=== PATIENT | female | born 2005 | race Caucasian/White ===

== ENCOUNTER 2025-02-15 11:09 | Outpatient (CLI) | payer OTHER, SELFPAY ==
--- OUTSIDE RECORDS SUMMARY | 2025-02-15 12:05 | XMS_ITS | Clinical Summary ---
Author Organization [facility] Address [address] [place] [address] Care Team Providers Care Icu Specialist Name Role Phone Scooter Vizcaino MD Unavailable [phone] Scooter Vizcaino MD Primary Care Provider [phone] Allergies No known active allergies Medications sertraline (ZOLOFT) 50 mg tablet 4 Active drospirenone-eth inyl estradioL (CYNTHIA REDMOND) 3-0.02 mg per tabletIndication s:Menorrhagia with regular cycle,Dysmenorrh ea,Encounter for control pills maintenance Take 1 tablet by mouth daily Stack pills, not taking inactive week 84 tablet 4 4 Active Additional Information Patient not taking.Reported on 01/21/2025 dextroamphetamin e-amphetamine (ADDERALL) 10 mg tablet Take 1 tablet (10 mg total) by mouth 4 Active cetirizine (ZyrTEC) 10 mg tablet Take 1 tablet (10 mg total) by mouth as needed 3 Active SUMAtriptan (IMITREX) 50 mg tablet 1 tablet at the onset of migraine; may repeat after 2 hours once in a 24 hour period if needed 5 Active Qulipta 60 mg tablet Take 60 mg by mouth daily 5 Active Active Problems Problem Noted Date Diagnosed Date 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 [place] [address] Jessika Gilmore MD Encounter for annual routine gynecological examination (Primary Dx); Encounter for screening for infections with predominantly sexual mode of transmission; Dysmenorrhea; Encounter for general counseling and advice on contraceptive management; Abnormal uterine bleeding (AUB); Family history of breast cancer 11/30/2024 Telephone [facility] [address] [place] [address] Elyssa Clay from Last 3 Months Surgical History Surgery Date Site/Laterality Comments NO PAST SURGERIES Family History Medical History Relation Name Comments No Known Problems Father No Known Problems Mother Scoliosis Other Relation Name Status Comments Father Alive Mother Alive Other Social History Tobacco Use Types Packs/Day Years Used Date Smoking Tobacco: Never Smokeless Tobacco: Never Tobacco Cessation:Counseling Given: Not Answered Alcohol Use Standard Drinks/Week Comments Defer 0 (1 standard drink = 0.6 oz pur e alcohol) AUDIT-C Answer Date Recorded Frequency of Alcohol Consumption Not on file 08/13/2023 Q2: How many drinks containi ng alcohol do you have on a typical day when you are drinking? Patient does not drink Frequency of Binge Drinking Not on file 01/2024 Personal Safety Answer Date Recorded Have you ever been in or are you currently in a harmful physical or emotional relationship or is someone making you feel afraid or unsafe? 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 Temperature 36.6 C (97.8 F) 07/29/2024 11:56 AM TEST AND BALANCE ENGINEER Respiratory Rate 18 07/29/2024 11:5 5 AM TEST AND BALANCE ENGINEER Oxygen Saturation 100% 07/29/2024 11: 55 AM TEST AND BALANCE ENGINEER Inhaled Oxygen Concentration - - Weight 55.7 kg (122 lb 12.8 oz) 025 10:49 AM CDT Height 160 cm (5' 3) 01/21/2025 10:49 AM CDT Body Mass Index 21.75 01/21/2025 10:49 AM CDT Plan of Treatment Health Maintenance Due Date Last Done Comments Chlamydia and Gonorrhea (GC/CT) Screening 2004 Depression Screening 2004 Hepatitis C Screening 2004 Meningococcal B Vaccine (1 of 2 - Standard) 2020 Covid-19 Vaccine ( season) 2024 02/12/2021, 01/22/2021 DTaP/Tdap/Td Vaccine (7 - Td or Tdap) 02/13/2025 02/13/2015, 01/17/2010, 03/27/2006, Additional history exists Influenza Vaccine (#1) 2025 , 04/14/2020, 03/19/2019, Additional history exists Regular Well Visit/Exam 18-64 01/21/2026 01/21/2025, 08/13/2023 Pneumococcal vaccine <65 Aged Out 005, 03/08/2005, 01/02/2005 No longer eligible based on patient's age to complete this topic Hepatitis B Screening Completed 01/02/2006 , 04/29/2005, 03/08/2005 Varicella Vaccines Completed 12/27/2008, 03/27/2006 HPV Vaccines Completed 03/19/2019, 10/2016, 02/28/2016, Additional history exists Meningococcal Vaccine Completed 12/27/2021, 016 Procedures Procedure Name Priority Date/Time Associated Diagnosis Comments SURESWAB(R), CT/NG, T VAGINALIS Routine 01/21/2025 11:33 AM CDT Encounter for screening for infections with predominantly sexual mode of transmission from Last 3 Months Results * SURESWAB(R), CT/NG, T VAGINALIS (01/21/2025 11:33 AM CDT) C. trachomatis RNA NOT DETECTED NOT DETECTED [facility] [place] N. gonorrhoeae RNA NOT DETECTED NOT DETECTED [facility] [place] Comment [facility] [place] Comment: The analytical performance characteristics of this assay, when used to test SurePath(TM) specimens have been determined by [facility]. The modifications have not been cleared or approved by the FDA. This assay has been validated pursuant to the CLIA regulations and is used for clinical purposes. For additional information, please refer to https://[employer]/faq/NJP382 (This link is being provided for information/ educational purposes only.) Trichomonas vaginalis NOT DETECTED NOT DETECTED [facility] [place] Comment: For additional information, please refer to [email or web address]/[email or web address] (This link is being provided for informational/ educational purposes only.) Urine 01/21/2025 11:3 3 AM CDT 01/22/2025 4:40 AM CDT Jessika Gilmore MD LAB BLOOD ORDERABLES nal Result [facility] [address] [place] [address] from Last 3 [place] [address] [facility] [id number] [facility] [id number] [facility] OPEN ACCESS [facility] Care Teams Icu Specialist Relationship Specialty Start Date End Date Scooter Vizcaino MD [address] [place] [address] PCP - General Internal Medicine 07/29/24 Scooter Vizcaino MD [address] [place] [address] Referring Physician Internal Medicine 06/22/24
--- OUTSIDE RECORDS SUMMARY | 2025-02-15 12:05 | XMS_ITS | Clinical Summary ---
Author Organization [facility] [employer] Address [address] [place] [address] Care Team Providers Care Tie Puller Name Role Phone Scooter Vizcaino MD Primary Care Provider [phone] Source Comments [facility] [employer],non-owned Affiliates and Associated Physician Practices is amultiple site organization consisting of ambulatory clinics and hospital sitesin [place], [place], [place] and [place]. This disclosure is being madepursuant to the Care Everywhere program and may not contain all information available regarding this patient. Last updated 18.[facility] [employer] Allergies No known active allergies Medications * Be aware that medications may not be up to date on this document. Alwaysverify current medications with the patient. amphetamine-dextr oamphetamine (Adderall) 10 MG tablet Take 1 (one) tablet by mouth 07/01/20 24 Active sertraline (Zoloft) 100 MG tablet Take 1 (one) tablet by mouth once daily 09/15/19 25 Active cetirizine (ZyrTEC) 10 MG tablet Take 1 (one) tablet by mouth as needed 06/25/20 23 Active Atogepant (Qulipta) 60 MG TABSIndications:O cular migraine,Migraine without aura and without status migrainosus, not intractable Take 1 (one) tablet by mouth once daily 30 tablet 5 10/22/19 25 Active SUMAtriptan (Imitrex) 50 MG tabletIndications :Ocular migraine,Migraine without aura and without status migrainosus, not intractable 1 tablet at the onset of migraine; may repeat after 2 hours once in a 24 hour period if needed 9 tablet 4 10/22/19 25 Active hydrocortisone (Hytone) 2.5 % cream Apply to affected area every 24 hours 12/01/19 Active meclizine (Antivert) 25 MG tablet Take 1 (one) tablet by mouth as needed 05/29/20 24 Active oxyCODONE, immediate release, (Roxicodone) 5 MG tabletIndications :Obstructive hydrocephalus (HCC) Take 1 (one) tablet by mouth every 4 hours as needed 20 tablet 01/01/20 025 Discontin ued(List Clean-Up) acetaminophen (Tylenol) 325 MG tablet Take 2 (two) tablets by mouth every 6 hours as needed Maximum allowable Acetaminophen amount = 4 Grams (4000 mg) / 24 hours. 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 (acquired) (postural) 10/07/2018 Adolescent idiopathic scoliosis of lumbar region 04/09/2018 Hamstring tightness of both lower extremities Closed fracture of radius 06/11/2016 Encounters Date Type Department Care Team Description 02/15/2025 Telephone [facility] - Centralized Scheduling [address] [place] [phone] Sylvia Morfin MD Appointment 01/28/2025 11:00 AM CDT Office Visit [facility] - Neurology [address] [place] [phone] Edenilson Rasmussen, MARKET RESEARCH SPECIALIST-SUPERVISOR SHEET MANUFACTURING Migraine with aura and without status migrainosus, not intractable (Primary Dx); Other hydrocephalus (HCC) 01/13/2025 2:00 PM CDT Office Visit [facility] - Neurosurgery [address] [facility] [place] [address] Cecily Eid, MARKET RESEARCH SPECIALIST-SUPERVISOR SHEET MANUFACTURING Obstructive hydrocephalus (HCC) (Primary Dx) 01/13/2025 Travel 01/04/2025 Travel 12/29/2024 3:39 PM CDT Anesthesia Event [facility] JOSEPH OP [address] [place] [address] Aguilar Small, Molly Hernandez, MARKET RESEARCH SPECIALIST-SUPERVISOR SHEET MANUFACTURING 12/29/2024 12:35 PM CDT - 12/29/2024 3:05 PM CDT Surgery [facility] [address] [place] [address] Sylvia Morfin MD endoscopic third ventriculostomy placement 12/29/2024 10:29 AM CDT - 12/31/2024 5:21 PM CDT Hospital Encounter [facility] 3N ICU [address] [place] [address] Sylvia Morfin MD Surgery General Discharge Disposition: Home or Self Care 12/29/2024 Travel 12/23/2024 12:35 PM CDT - 12/23/2024 11:59 PM CDT Hospital Encounter [facility] DIAGNOSTIC RAD OP [address] [place] [address] Unknown, Provider Discharge Disposition: Home or Self Care 12/23/2024 12:25 PM CDT - 12/23/2024 12:34 PM CDT Hospital Encounter [facility] LAB OP DRAW STATION [address] [place] [address] Discharge Disposition: Home or Self Care 12/23/2024 11:30 AM CDT - 12/23/2024 12:24 PM CDT Hospital Encounter [facility] PAT [address] [place] [address] Sylvia Morfin MD Neurosurgery Discharge Disposition: Home or Self Care 12/23/2024 11:15 AM CDT - 12/23/2024 11:29 AM CDT Hospital Encounter [facility] EKG/HOLTER [address] [place] [address] Sylvia Morfin MD Discharge Disposition: Home or Self Care 12/23/2024 10:45 AM CDT Office Visit [facility] - Neurosurgery [address] [place] [phone] Sylvia Morfin MD Obstructive hydrocephalus (HCC) (Primary Dx) 12/23/2024 Travel 12/02/2024 1:15 PM CDT Clinical Support [facility] [address] [place] [phone] Sreekanth Sood MD Hydrocephalus, unspecified type (HCC) (Primary Dx) 12/02/2024 1:10 PM CDT Clinical Support [facility] - Ophthalmology [address] [place] [phone] Sreekanth Sood MD Hydrocephalus, unspecified type (HCC) (Primary Dx) 12/02/2024 1:05 PM CDT Clinical Support [facility] - Ophthalmology [address] [place] [phone] Sreekanth Sood MD Hydrocephalus, unspecified type (HCC) (Primary Dx) 12/02/2024 1:00 PM CDT Office 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) ; Pre-op testing 11/25/2024 Travel 11/22/2024 Results Follow-Up [facility] - Neurology [address] [facility] [place] [address] Edenilson Rasmussen APRN-CARMEN 11/19/2024 8:30 AM CDT - 11/19/2024 11:59 PM CDT Hospital Encounter [facility] EEG/EMG [address] [place] [address] Edenilson Rasmussen APRN-SUPERVISOR SHEET MANUFACTURING Discharge Disposition: Home or Self Care 11/19/2024 Travel from Last 3 Months Immunizations Immunization Administration Dates Next Due DTAP/IPV 01/17/2010 DTaP VACCINE IM (6wk-6yrs) 03/27/2006,,04/29/2005,03/08 HEP A PEDS 2 DOSE 07/02/2007,12/31/2006 HIB Hep B 01/02/2006,04/29/2005,03/08/2005 Human Papilloma Virus Nineva lent Vaccine 03/19/2019,07/10/2016,02/28/2016 Human Papilloma Virus Misti valent Vaccine 02/13/2015 INFLUENZA VACCINE, QUADR. (F LUZONE; FLULAVAL; FLUARIX; AFLURIA QUADRIVALENT; 6MO+), 0.5 ML (IIV4) 05/15/2021,04/14/2020,03/19/2019,04/21 MENINGOCOCCAL ACWY (MCV4P) VAC IM 02/27/2016 MENINGOCOCCAL ACWY MENVEO 12/27/2021 MMR 03/27/2006 PNEUMOCOCCAL PCV7 CONJ, PEDS 04/29/2005,03/08/20 05,01/02/2005 POLIO IPV 10/08/2005,04/29/2005,03/08/2005 TDAP (7yrs+) 02/13/2015 VARICELLA 12/27/2008,03/27/2006 Family History Medical History Relation Name Comments Hypertension Father Cancer - Esophageal Maternal Grandfather Migraine Mother Cancer - Breast Paternal Grandfather Relation Name Status Comments Father Alive Maternal Grandfather Alive Mother Alive Paternal Grandfather Alive Social History Tobacco Use Types Packs/Day Years Used Date Smoking Tobacco: Never Smokeless Tobacco: Never Alcohol Use Standard Drinks/Week Comments Never 0 (1 standard drink = 0.6 oz pur e alcohol) AUDIT-C Answer Date Recorded Q1: How often do you have a drink containing alcohol? Never 12/29/2024 Q2: How many drinks containi ng alcohol do you have on a typical day when you are drinking? Patient does not drink Q3: How often do you have si x or more drinks on one occasion? Never 12/29/2024 Overall Financial Resource Strain (CARDIA) Answe r Date Recorded How hard is it for you to pa y for the very basics like food, housing, medical care, and heating? Not hard at all 12/30/2024 PHQ-2 Answer Date Recorded Patient Health Questionnaire-2 Score 0 12/02/2024 [facility] - Occupational Stress Questionnaire Answer Date Recorded Do you feel stress - tense, restless, nervous, or anxious, or unable to sleep at night because your mind is troubled all the time - these days? To some extent 12/30/2024 Hunger Vital Sign Answer Date Recorded Within the past 12 months, y ou worried that your food would run out before you got the money to buy more. Never true 12/31/19 25 Within the past 12 months, t he food you bought just didn't last and you didn't have money to get more. Never true 12/30/2024 PRAPARE - Transportation Answer Date Re corded In the past 12 months, has l ack of transportation kept you from medical appointments or from getting medications? No 12/06 In the past 12 months, has l ack of transportation kept you from meetings, work, or from getting things needed for daily living? No 12/30/2024 Housing Stability Vital Sign Answer Pradeep e Recorded In the last 12 months, was t here a time when you were not able to pay the mortgage or rent on time? No 12/30/2024 In the past 12 months, how m any times have you moved where you were living? 0 12/30/2024 At any time in the [facility] were you homeless or living in a half-way (including now)? No 12/30/2024 Comments No Sex and Gender Information Value Date Recorded Sex Assigned at Not on file Legal Sex Female 5:45 AM [employer] Gender Identity Not on file Sexual Orientation Not on file Last Filed Vital Signs Vital Sign Reading Time Taken Comments Blood Pressure 127/85 01/28/2025 10:59 AM CDT Pulse 114 01/28/2025 10:59 AM CDT Temperature 36.7 C (98.1 F) 01/13/2025 1:52 PM CDT Respiratory Rate 18 12/31/2024 4:50 PM CDT Oxygen Saturation 99% 01/28/2025 10:59 AM CDT Inhaled Oxygen Concentration - - Weight 56.9 kg (125 lb 6.4 oz) 01/28/2025 10:59 AM CDT Height 160 cm (5' 3) 01/28/2025 10:59 AM CDT Body Mass Index 22.21 01/28/2025 10:59 AM CDT Plan of Treatment Upcoming Encounters Date Type Department Care Team (Late st Contact Info) Description 03/31/2025 8:30 AM CDT Office Visit [facility] - Neurosurgery [address] [place] [phone] Sylvia Morfin MD [address] [place] [address] [address] [place] [address] 07/13/2025 9:00 AM [employer] Office Visit [facility] - Neurology [address] [place] [address], [place] [phone] Edenilson Rasmussen, MARKET RESEARCH SPECIALIST-SUPERVISOR SHEET MANUFACTURING [address] [place] [address] [address] [place] [address] Health Maintenance Due Date Last Done Comments HIV SCREENING 12/26/2019 CHLAMYDIA/GONORRHEA SCREENING 2020 MENINGOCOCCAL (Group B) VACCINE SHARED DECISION-MAKING (1 of 2 - Standard) 2020 HEPATITIS C SCREENING 12/21/2022 COVID-19 VACCINE ( season) 2024 02/12/2021, 01/22/2021 DTAP/TDAP/TD VACCINES (7 - Td or Tdap) 02/13/2025 02/13/2015, 01/17/2010, 03/27/2006, Additional history exists INFLUENZA VACCINE (#1) 2025 , 04/14/2020, 03/19/2019, Additional history exists ZOSTER VACCINE (1 of 2) 2054 PNEUMOCOCCAL VACCINE Aged Out 04/29/2005, 03/08/2005, 01/02/2005 No longer eligible based on patient's age to complete this topic HEPATITIS B VACCINE Completed 01/02/2006, 04/29/2005, 03/08/2005 HIB VACCINE Completed 01/02/2006, 04/07, 03/08/2005 HPV VACCINE Completed 03/19/2019, 10/2016, 02/28/2016, Additional history exists MENINGOCOCCAL GROUPS A/C/Y/W VACCINE Completed 12/27/2021, 02/27/2016 DEPRESSION SCREENING Completed 12/02/2024 Medical Devices Implanted Type Area Compensation Programs Manager Device Identifier Shelf Expiration Date Model / Serial / Lot Screw 1.5mm 4mm Crnmxf Slfdrl Implanted:Qty: 3 on 12/29/2024 by Sylvia Morfin MD at [facility] Right: Cranial Synthes Maxillofacial [id number] 4.01 / / Cover Bur Hl Eric 12mm Matrixneuro Thk.4 Implanted:Qty: 1 on 12/29/2024 by Sylvia Morfin MD at [facility] Right: Cranial Synthes Maxillofacial [id number] 1 / / Procedures Procedure Name Priority Date/Time Associated Diagnosis Comments BASIC METABOLIC PANEL (CALCIUM TOTAL) Routine 12/31/2024 4:04 AM CDT BASIC METABOLIC PANEL (CALCIUM TOTAL) Routine 12/30/2024 3:[address] HEAD WO CONTRAST Routine 12/30/2024 1 2:08 AM CDT Obstructive hydrocephalus (HCC) CBC W AUTO DIFFERENTIAL Routine 12/29/2024 7:05 PM CDT ENDOTRACHEAL TUBE NOTE Routine 12/29/2024 4:[address] HEAD WO CONTRAST STAT 12/29/2024 3 :20 PM CDT Pre-op testing VT VENTRIC-CISTERN,3RD VENT,STEREOTAC 12/29/2024 3:09 PM CDT Hydrocephalus, unspecified type (HCC) Case Notes stealth CT on arrival Special Needs Supine, stealth minop LIBIA 12/28 TYPE + SCREEN PANEL STAT 12/29/2024 1 1:26 AM CDT Pre-op testing HCG URINE QUALITATIVE - POCT (IP) INTERFACED Routine 12/29/2024 10:51 AM CDT HCG URINE QUAL POCT NOTIFICATION STAT 12/29/2024 10:45 AM CDT Pre-op testing URINALYSIS REFLEX MICROSCOPIC REFLEX CULTURE Routine 12/23/2024 1:00 PM CDT Pre-op testing CULTURE URINE Routine 12/23/2024 1:00 PM CDT Pre-op testing XR CHEST 2VW Routine 12/23/2024 12:41 PM CDT Pre-op testing TYPE + SCREEN PANEL Routine 12/23/2024 1 2:34 PM CDT Pre-op testing PT-INR [facility] Routine 12/23/2024 12:34 PM CDT Pre-op testing PTT [facility] Routine 12/23/2024 12:34 PM CDT Pre-op testing CBC W AUTO DIFFERENTIAL Routine 12/23/2024 12:34 PM CDT Pre-op testing BASIC METABOLIC PANEL (CALCIUM TOTAL) Routine 12/23/2024 12:34 PM CDT Pre-op testing EKG 12-LEAD Routine 12/23/2024 11:14 AM CDT Pre-op testing FUNDUS PHOTO BOTH EYES Routine 12/02/2024 1:00 PM CDT Hydrocephalus, unspecified type (HCC) MILIAN AUTO VISUAL FIELD EXTENDED Routine 12/02/2024 1:00 PM CDT Hydrocephalus, unspecified type (HCC) RETINAL ANALYSIS OCT Routine 12/02/2024 1:00 PM CDT Hydrocephalus, unspecified type (HCC) EEG AWAKE OR DROWSY ROUTINE Routine 11/19/2024 11:59 PM CDT Syncope and collapse Seizure-like activity (HCC) from Last 3 Months Results * (ABNORMAL) BASIC METABOLIC PANEL (CALCIUM TOTAL) (12/31/2024 4:04 AM CDT) Only the most recent of3 resultswithin the time period is included. BUN 11 7 - 26 mg/dL 12/31/2024 4:54 AM [facility] Creatinine 0.73 0.56 - 0.96 mg/dL 12/31/2024 4:54 AM [facility] Sodium 135(L) 136 - 145 mmol/L 12/31/2024 4:54 AM [facility] Potassium 3.6 3.5 - 4.5 mmol/L 12/31/2024 4:54 AM [facility] Chloride 107 98 - 107 mmol/L 12/31/2024 4:54 AM [facility] CO2 21(L) 22 - 29 mmol/L 12/31/2024 4:54 AM [facility] Glucose 99 70 - 99 mg/dL 12/31/2024 4:54 AM [facility] Calcium 8.4 8.4 - 10.2 mg/dL 12/31/2024 4:54 AM [facility] Anion Gap 7 6 - 16 12/31/2024 4:54 AM [facility] BUN/Creatinine Ratio 15 7 - 23 12/31/2024 4:54 AM CDT [facility] Osmolality Calculated 279 275 - 295 mOsm/kg 12/31/2024 4:54 AM CDT [facility] eGFR by CKD-EPI >90 >=90 mL/min/1.7 3 m2 12/31/2024 4:54 AM CDT [facility] Blood BLOOD SPECIMEN / Unknown Venipuncture / Unknown 12/31/2024 4:04 AM CDT 12/31/2024 4:16 AM CDT Narrative [facility] - 12/31/2024 4:54 AM CDT Estimated Glomerular Filtration Rate (eGFR) calculated using the CKD-EPI Creatinine Equation (2020), per the National Kidney Foundation and [place] [employer]ph[employer] recommendations. us Sylvia Morfin MD LAB - CHEMISTRY ORDERABLES Kathi nicole Result [facility] [address] [place] [address], [facility] [phone] * CT Head Wo Contrast (12/30/2024 12:08 AM CDT) Only the most recent of2 resultswithin the time period is included. Anatomical Region Laterality Modality Head Computed Tomogra phy 12/30/2024 12:1 1 AM CDT Impressions 12/30/2024 8:51 AM CDT IMPRESSION: 1.Postsurgical changes from interval endoscopic third ventriculostomy with pneumocephalus in the frontal horns of the lateral ventricles. 2.Unchanged ventricular size from prior with a third ventricle diameter of 1.2 cm. 3.There is mild periventricular hypoattenuation which may be secondary to transependymal flow of CSF. The report is dictated by Elizabeth Parker Dr, MD (vice president supply chain) I, Pam Carballo MD have personally reviewed and interpreted this examination/study. > Interpreting Provider: Pam Carballo MD on 12/30/2024 8:51 AM Narrative 12/30/2024 8:51 AM CDT PROCEDURE: CT HEAD WO CONTRAST, DATE/TIME OF EXAM: 12/30/2024 12:09 AM, LOCATION [facility] INDICATION: G91.1: Obstructive hydrocephalus (HCC) ADDITIONAL CLINICAL INFORMATION: Ordering Provider Reason For Exam: Lasha ETV Technologist Note: Additional: EXAMINATION: Computed tomography (CT) of the head without contrast TECHNIQUE: CT of the head was performed without contrast according to standard protocol. CT dose reduction technique was used, including Automated Exposure Control. COMPARISON: CT head without contrast dated 12/29/2024 FINDINGS: Postsurgical changes from interval endoscopic third ventriculostomy including a erik hole over the right frontal bone and subcutaneous emphysema. Pneumocephalus is seen along the endoscopic tract as well as in the anterior horn of the left greater than right lateral ventricle. Ventricles appear similar size from prior with a third ventricle diameter of 1.2 cm. There is mild periventricular hypoattenuation which may be secondary to transependymal flow of CSF. No acute intracranial hemorrhage or intra- or extra-axial fluid collections are identified. The basal cisterns are patent. No mass effect or midline shift is seen. The whitehead-white matter differentiation is normal. The orbits appear normal. The paranasal sinuses are clear. The mastoid air cells are clear. No acute calvarial fracture is identified. Procedure Note Pam Carballo MD - 12/30/2024 PROCEDURE: CT HEAD WO CONTRAST, DATE/TIME OF EXAM: 12/30/2024 12:09 AM, LOCATION [facility] INDICATION: G91.1: Obstructive hydrocephalus (HCC) ADDITIONAL CLINICAL INFORMATION: Ordering Provider Reason For Exam: Lasha ETV Technologist Note: Additional: EXAMINATION: Computed tomography (CT) of the head without contrast TECHNIQUE: CT of the head was performed without contrast according to standard protocol. CT dose reduction technique was used, including Automated Exposure Control. COMPARISON: CT head without contrast dated 12/29/2024 FINDINGS: Postsurgical changes from interval endoscopic third ventriculostomy including a erik hole over the right frontal bone and subcutaneous emphysema. Pneumocephalus is seen along the endoscopic tract as well asin the anterior horn of the left greater than right lateral ventricle. Ventricles appear similar size from prior with a third ventriclediameter of 1.2 cm. There is mild periventricular hypoattenuation which may be secondary to transependymal flow of CSF. No acute intracranial hemorrhage or intra- or extra-axial fluidcollections are identified. The basal cisterns are patent. No mass effect or midline shift is seen. The whitehead-white matter differentiation is normal. The orbits appear normal. The paranasal sinuses are clear. The mastoidair cells are clear. No acute calvarial fracture is identified. IMPRESSION: 1.Postsurgical changes from interval endoscopic third ventriculostomywith pneumocephalus in the frontal horns of the lateral ventricles. 2.Unchanged ventricular size from prior with a third ventricle diameterof 1.2 cm. 3.There is mild periventricular hypoattenuation which may be secondaryto transependymal flow of CSF. The report is dictated by Elizabeth Parker Dr, MD (vice president supply chain) I, Pam Carballo MD have personally reviewed and interpreted this examination/study. > Interpreting Provider: Pam Carballo MD on 12/30/2024 8:51 AM us Sylvia Morfin MD CT ORDERABLES Final Result * (ABNORMAL) CBC W AUTO DIFFERENTIAL (12/29/2024 7:05 PM CDT) Only the most recent of2 resultswithin the time period is included. WBC 7.6 4.0 - 10.7 x10E9/L 12/29/2024 7:22 PM [facility] RBC Count 4.58 3.90 - 5.20 x10E12/L 12/29/2024 7:22 PM [facility] Hemoglobin 13.5 11.9 - 15.8 g/dL 12/29/2024 7:22 PM [facility] Hematocrit 40.2 34.8 - 46.1 % 12/29/2024 7:22 PM [facility] MCV 87.8 80.0 - 98.0 fL 12/29/2024 7:22 PM [facility] MCH 29.5 26.7 - 33.6 pg 12/29/2024 7:22 PM [facility] MCHC 33.6 31.7 - 36.3 g/dL 12/29/2024 7:22 PM [facility] RDW-CV 13.0 11.3 - 14.8 % 12/29/2024 7:22 PM [facility] Platelet Count 192 150 - 420 x10E9/L 12/29/2024 7:22 PM [facility] MPV 11.4 7.8 - 11.4 fL 12/29/2024 7:22 PM [facility] Neutrophil % 77.0(H) 41.0 - 74.0 % 12/29/2024 7:22 PM [facility] Lymphocyte % 18.4 17.0 - 47.0 % 12/29/2024 7:22 PM [facility] Monocyte % 3.4 3.0 - 11.0 % 12/29/2024 7:22 PM [facility] Eosinophil % 0.3 0.0 - 7.0 % 12/29/2024 7:22 PM [facility] Basophil % 0.4 0.0 - 1.6 % 12/29/2024 7:22 PM [facility] Immature Granulocytes % 0.5 0.0 - 1.0 % 12/29/2024 7:22 PM [facility] Neutrophil Absolute 5.86 1.60 - 7.50 x10E9/L 12/29/2024 7:22 PM [facility] Lymphocyte Absolute 1.40 1.00 - 4.40 x10E9/L 12/29/2024 7:22 PM [facility] Monocyte Absolute 0.26 0.15 - 1.00 x10E9/L 12/29/2024 7:22 PM [facility] Eosinophil Absolute 0.02 0.00 - 0.60 x10E9/L 12/29/2024 7:22 PM [facility] Basophil Absolute 0.03 0.00 - 0.13 x10E9/L 12/29/2024 7:22 PM [facility] Blood BLOOD SPECIMEN / Unknown Venipuncture / Unknown 12/29/2024 7:05 PM CDT 12/29/2024 7:10 PM [facility] us Sylvia Morfin MD LAB - HEMATOLOGY ORDERABLES Fin al Result [facility] [address] [place] [address], [facility] [phone] * ETT LINE PERFORMABLE (12/29/2024 4:17 PM CDT) Narrative Yunier Menchaca MD - 12/29/2024 4:17 PM CDT Yunier Menchaca MD 12/29/2024 4:17 PM Endotracheal Tube Placement: Patient Location: OR. Intubation Event Date/Time: 12/29/2024 3:54 PM Procedure: intubation (48160) Procedure Section: Sedation: under general anesthesia. Indications for Airway Management: anesthesia Procedure pretreatments used? No Induction: standard IV Patient Position: sniffing Mask Ventilation: easy. Blade Type: Ynes Blade Size: 3 Laryngoscopy View: grade 1 (full cords) Intubation Adjuncts: stylet Tube: endotracheal tube Placement: oral Tube type: cuff - inflated Tube Size (MM): 7 Depth of Insertion (CM): 21 Measured From: lips Cuff Inflated With: air Number of Attempts: 1. Ventilation between attempts: No. Placement Verified By: direct visualization, bilateral breath sounds and chest auscultation Tube secured with: adhesive tape. Dentition unchanged? Yes Difficult Airway? No. Procedure Start Time: 12/29/2024 3:54 PM. Staff Section Anesthesia Provider: Yunier Menchaca MD, Performed the procedure us Aguilar Small DO GENERAL ANESTHESIA ORDERAB LES Final Result * TYPE + SCREEN PANEL (12/29/2024 11:26 AM CDT) Only the most recent of2 resultswithin the time period is included. Antibody Screen NEG 12:25 PM CDT [facility] ABO Rh A POS 12/29/2024 12:25 PM CDT [facility] Blood Bank BLOOD SPECIMEN / Unknown Venipuncture / Unknown 12/29/2024 11:26 AM CDT 12/29/2024 11:32 AM CDT us Molly Kerns MARKET RESEARCH SPECIALIST-SUPERVISOR [employer]ET MANU[employer]URING LAB - BLOOD BANK ORDERAB LES Final Result [facility] [address] [place] [address], [facility] [phone] * HCG URINE QUALITATIVE - POCT (IP) INTERFACED (12/29/2024 10:51 AM CDT) HCG Qual Urine Negative Negative 12/29/2024 10:58 AM CDT [facility] Urine URINE / Unknown 12/29/2024 1 0:51 AM CDT 12/29/2024 10:58 AM CDT us Sylvia Morfin MD LAB - POINT OF CARE ORDERABLES Final Result Performing Organization Address City/[facility]/ZIP Co de Phone Number [address] [address], [facility] [phone] * HCG URINE QUAL POCT NOTIFICATION (12/29/2024 10:45 AM CDT) Pathologist [facility] Comment Notification Label Only - See Separate Report 12/29/2024 12:01 PM CDT [facility] Urine URINE / Unknown 12/29/2024 1 0:45 AM CDT 12/29/2024 10:49 AM CDT us Molly Kerns MARKET RESEARCH SPECIALIST-SUPERVISOR [employer]URING LAB - URINALYSIS ORDERAB LES Final Result Performing Organization Address [facility]/ZIP Co de Phone Number [address] [address], [facility] [phone] * (ABNORMAL) URINALYSIS REFLEX MICROSCOPIC REFLEX CULTURE (12/23/2024 1:00 PM CDT) Color UA Yellow Yellow, Straw 12/23/2024 1:57 PM CDT [facility] Clarity UA Clear Clear 12/23/2024 1:57 PM CDT [facility] Glucose UA Normal Normal 12/23/2024 1:57 PM CDT [facility] Bilirubin UA Negative Negative 12/23/2024 1:57 PM CDT [facility] Ketone UA Negative Negative 12/23/2024 1:57 PM CDT [facility] Specific [place] UA 1.015 1.005 - 1.030 12/23/2024 1:57 PM T [facility] Blood UA Negative Negative 12/23/2024 1:57 PM [facility] pH UA 6.0 5.0 - 8.0 12/23/2024 1:57 PM [facility] Protein UA Negative Negative 12/23/2024 1:57 PM [facility] Urobilinogen UA Normal Normal mg/dL 12/23/2024 1:57 PM [facility] Nitrite UA Negative Negative 12/23/2024 1:57 PM [facility] Leukocyte Esterase UA 250 MATT/uL(A) Negative 12/23/2024 1:57 PM [facility] RBC UA 3-5 0 - 5 # /hpf 12/23/2024 1:57 PM [facility] WBC UA 6-10(A) 0 - 5 # /hpf 12/23/2024 1:57 PM [facility] Bacteria UA Trace(A) None Seen 12/23/2024 1:57 PM [facility] Squamous Epithelial Cells 3-5 0 - 5 /hpf 12/23/2024 1:57 PM [facility] Mucus UA 1+ /LPF 12/23/2024 1:57 PM [facility] Reflex Status Culture to follow 12/23/2024 1:57 PM [facility] Urine URINE SPECIMEN OBTAINED BY CLEAN CATCH PROCEDURE / Unknown Collection / Unknown 12/23/2024 1:00 PM CDT 12/23/2024 1:49 PM CDT [facility] - 12/23/2024 1:57 PM CDT us Sylvia Morfin MD LAB - URINALYSIS ORDERABLES Fin al Result [facility] [address] [place] [address], [facility] [phone] * CULTURE URINE (12/23/2024 1:00 PM CDT) Culture Urine >100,000 CFU/mL urogenital danny KACI 2024 4:23 AM CDT [facility] MICRO[facility]OLOG[facility] Urine URINE SPECIMEN OBTAINED BY CLEAN CATCH PROCEDURE / Unknown Collection / Unknown 12/23/2024 1:00 PM CDT 12/23/2024 1:49 PM CDT Sylvia Morfin MD LAB - MICROBIOLOGY ORDERABLES F inal Result [facility] MICRO[facility] [address] [place] [address], [facility] [phone] * XR Chest 2Vw (12/23/2024 12:41 PM CDT) Anatomical Region Laterality Modality Chest Digital Radiogra phy 12/23/2024 1:57 PM CDT Impressions 12/23/2024 1:57 PM CDT IMPRESSION: No acute cardiopulmonary abnormalities. > Interpreting Provider: Moris Valdez MD on 12/23/2024 1:57 PM Narrative 12/23/2024 1:57 PM CDT PROCEDURE: XR CHEST 2VW DATE/TIME OF EXAM: 12/23/2024 12:41 PM CLINICAL INFORMATION: None relevant/not provided if blank. Indication: Z01.818: Pre-op testing Additional History: COMPARISON: None. FINDINGS: Frontal and lateral views of the chest demonstrate a normal sized heart and pulmonary vasculature. No focal consolidation, pleural effusion or pneumothorax. No acute osseous abnormalities. Procedure Note Moris Valdez MD - 12/23/2024 PROCEDURE: XR CHEST 2VW DATE/TIME OF EXAM: 12/23/2024 12:41 PM CLINICAL INFORMATION: None relevant/not provided if blank. Indication: Z01.818: Pre-op testing Additional History: COMPARISON: None. FINDINGS: Frontal and lateral views of the chest demonstrate a normal sized heartand pulmonary vasculature. No focal consolidation, pleural effusion or pneumothorax. No acute osseous abnormalities. IMPRESSION: No acute cardiopulmonary abnormalities. > Interpreting Provider: Moris Valdez MD on 12/23/2024 1:57 PM Sylvia Morfin MD DIAGNOSTIC IMAGING ORDERABLES F inal Result * PTT [facility] (12/23/2024 12:34 PM CDT) [facility] APTT 26.2 23.0 - 38.4 Seconds 12/23/2024 1:35 PM CDT [facility] Comment:Suggested therapeuti c range for full dose I.V. unfractionated heparin therapy for venous thromboembolism is 71 to 109 seconds. Blood BLOOD SPECIMEN / Unknown Lab Venipuncture / Unknown 12/23/2024 12:34 PM CDT 12/23/2024 1:08 PM CDT Sylvia Morfin MD LAB - COAGULATION ORDERABLES Fi nal Result Performing Organization Address [facility]/ZIP Co de Phone Number [address] [address], [facility] [phone] * PT-INR [facility] (12/23/2024 12:34 PM CDT) [facility] PT 13.5 12.1 - 14.8 Seconds 12/23/2024 1:35 PM CDT [facility] INR 1.1 See Comment 12/23/2024 1:35 PM CDT [facility] Comment:The suggested therap eutic range for standard coumadin (warfarin) therapy is an INR of 2.0-3.0. For high-risk patients (Mechanical Mitral Valve Prosthesis, etc.), the suggested prophylactic therapeutic range is an INR of 2.5-3.5. Blood BLOOD SPECIMEN / Unknown Lab Venipuncture / Unknown 12/23/2024 12:34 PM CDT 12/23/2024 1:08 PM CDT Sylvia Morfin MD LAB - COAGULATION ORDERABLES Fi nal Result Performing Organization Address [facility]/ZIP Co de Phone Number [address] [address], [place] [phone] * EKG 12-Lead (12/23/2024 11:14 AM CDT) [facility] Ventricular Rate 76 BPM [facility] MUSE Atrial Rate 76 BPM [facility] P-R Interval 146 ms [facility] QRS Duration ms 90 ms [facility] Q-T Interval ms 380 ms [facility] QTC Calculation (Bezet) 427 ms [facility] Calculated P [place] 73 degrees [facility] Calculated R [place] 88 degrees [facility]USE Calculated T [place] 63 degrees [facility] MUSE Interpretation EKG NORMAL SINUS RHYTHM WITH SINUS ARRHYTHMIA POSSIBLE LEFT ATRIAL ENLARGEMENT BORDERLINE ECG NO PREVIOUS ECGS AVAILABLE Confirmed by LETICIA BOX DO ([id number]) on 12/26/2024 1:47:11 PM [facility] MUSE 12/23/2024 11:1 4 AM CDT 12/26/2024 1:47 PM CDT Sylvia Morfin MD ECG ORDERABLES Edited Result - Final [facility] * FUNDUS PHOTO BOTH EYES (12/02/2024 1:00 PM CDT) Anatomical Region Laterality Modality Head External-Camera Photography Narrative 12/02/2024 2:17 PM CDT Images from the original result were not included. OD: Sharp optic nerve margin, CDR 0.6, normal vessels and macula. OS: Sharp optic nerve margin, CDR 0.5,normal vessels and macula. Result [facility] Sreekanth Sood MD OPHTHALMOLOGY SCHED ORD W PAC S Final Result * MILIAN AUTO VISUAL FIELD EXTENDED (12/02/2024 1:00 PM CDT) Anatomical Region Laterality Modality Head External-Camera Photography Narrative 12/02/2024 2:18 PM CDT Images from the original result were not included. HVF 24-2 size III OD: Poor fixation on gaze tracker, (6/9 FL), o/w realiable. VFI 98, MD -2.67, full field. OS: Reliable, VFI 98, MD -2.51, full field. Result [facility] Sreekanth Sood MD OPHTHALMOLOGY SCHED ORD W PAC S Edited Result - Final * RETINAL ANALYSIS OCT (12/02/2024 1:00 PM CDT) Anatomical Region Laterality Modality Head External-Camera Photography Narrative 12/02/2024 2:17 PM CDT Images from the original result were not included. Peripapillary RNFL avg 103 OD, 105 OS. No elevation OU. us Sreekanth Sood MD OPHTHALMOLOGY SCHED ORD W PAC S Edited Result - Final * EEG AWAKE OR DROWSY ROUTINE (11/19/2024 11:59 PM CDT) Narrative Jw Sanders MD - 11/19/2024 11:59 PM CDT Jw Sanders MD 11/22/2024 10:49 AM EEG REPORT Patient Name: Deana Thorpe EEG#: [id number] Start Time: 09:15 AM 11/19/2024 Stop Time: 09:40 AM 11/19/2024 Clinical History: Deana Thorpe is a 18 year old female with syncope. This EEG is ordered seizures. Current medications Current Outpatient Medications Medication Instructions amphetamine-dextroamphetamine (Adderall) 10 MG tablet 10 mg cetirizine (ZYRTEC) 10 mg, PRN Qulipta 60 mg, Oral, DAILY sertraline (ZOLOFT) 100 mg, DAILY SUMAtriptan (Imitrex) 50 MG tablet 1 tablet at the onset of migraine; may repeat after 2 hours once in a 24 hour period if needed Description This is a routine 21-channel EEG tracing consisting of 20 channels of EEG obtained from electrodes placed on the scalp according to the international 10-20 system, T1 and T2 electrodes, and one channel of EKG monitoring. Background The awake background consisted of a posterior dominant rhythm up to 10 Hz and predominantly normal amplitude. Drowsy state was identified by roving eye movements and decreased myogenic artifact. Hyperventilation and photic stimulation were performed and elicited no abnormalities. EKG was observed throughout the recording. IMPRESSION This is a normal awake and drowsy EEG. Erik Sanon MD Neurology Resident us Edenilson Rasmussen MARKET RESEARCH SPECIALIST-SUPERVISOR SHEET MANUFACTURING NEUROLOGY ORDERABLES F inal Result from Last 3 Months Insurance [employer] HE[employer] HE[employer] Advance Directives * Full Code (Latest Code Status on File) Date Activated Date Inactivated Comments 12/29/2024 6:45 PM 12/31/2024 6:26 PM Care Teams Tie Puller Relationship Specialty Start Date End Date Scooter Vizcaino MD [address] [place] [address] PCP - General Internal Medicine 10/21/24
--- OUTSIDE RECORDS SUMMARY | 2025-02-15 12:05 | XMS_ITS | Clinical Summary ---
Author Organization [facility] Address [address] [place] [address] Care Team Providers Care Curtain Stitcher Name Role Phone Scooter Vizcaino MD Primary Care Provider Social History Tobacco Use Types Packs/Day Years Used Date Smoking Tobacco: Never Assessed Comments Unknown Sex and Gender Information Value Date Recorded Sex Assigned at Not on file Legal Sex Female 1:35 AM [facility] Gender Identity Not on file Sexual Orientation Not on file Plan of Treatment Health Maintenance Due Date Last Done Comments Annual Physical 12/26/2007 Meningococcal B Vaccine (1 of 2 - Standard) 2020 Hepatitis C 2022 COVID-19 Vaccine ( season) 2024 02/12/2021, 01/22/2021 DTaP, Tdap and Td Vaccines (7 - Td or Tdap) 02/13/2025 02/13/2015, 01/17/2010, 03/27/2006, Additional history exists Pneumococcal Vaccine: Pediatrics (0 to 5 Years) and At-Risk Patients (6 to 49 Years) Aged Out 04/29/2005, 03/08/2005, 01/02/2005 No longer eligible based on patient's age to complete this topic Hepatitis B Vaccines Completed 01/02/2006, 04/29/2005, 03/08/2005 HPV Vaccines Completed 03/19/2019, 10/2016, 02/28/2016, Additional history exists Meningococcal Vaccine Completed 12/27/2021, 016 RSV Immunizations Under 20 Months Aged Out No longer eligible based on patient's age to complete this topic Insurance [employer] [facility] Care Teams Curtain Stitcher Relationship Specialty Start Date End Date Scooter Vizcaino MD [address] [place] [address] PCP - General INTERNAL MEDICINE 06/15/24
--- OUTSIDE RECORDS SUMMARY | 2025-02-15 12:05 | XMS_ITS | Encounter Summary ---
Author Organization [facility] Address [address] [place] [address] Care Team Providers Care Hogshead Head Matcher Name Role Phone Scooter Vizcaino MD Primary Care Provider [phone] Reason for Visit * Reason Onset Date Comments Appointment 02/15/2025 Encounter Details Date Type Department Care Team (Late st Contact Info) Description 02/15/2025 Telephone [facility] - Centralized Scheduling [address] [place] [phone] Sylvia Morfin MD [address] [address] Appointment Social History Tobacco Use Types Packs/Day Years [...] Recorded Patient Health Questionnaire-2 Score 0 12/02/2024 [place] [facility] - Occupational Stress [...] money to buy more. Never true 12/31/19 Within the past 12 months, t he [...] any time in the past 12 m [facility], were you homeless or living in a long-term (including now)? No 12/30/2024 Comments No Sex and Gender Information Value Date Recorded Sex Assigned at Not on file Legal Sex Female 5:45 AM P[employer] OUT WORK[employer] Gender Identity Not on file Sexual Orientation Not on file documented as of this encounter Functional Status * Is person deaf or have serious hearing difficulty? Answer Date of Assessment Author No 12/29/2024 10:45 PM Whit Cochran RN * Is person blind or have serious difficulty seeing? Answer Date of Assessment Author No 12/29/2024 10:45 PM Whit Cochran RN * Does person have serious difficulty walking/climbing stairs? Answer Date of Assessment Author No 12/29/2024 10:45 PM Whit Cochran RN * Does person have difficulty dressing/bathing? Answer Date of Assessment Author No 12/29/2024 10:45 PM CDT Whit Deng RN * Does person have difficulty doing errands alone? Answer Date of Assessment Author No 12/29/2024 10:45 PM CDT Whit Deng RN documented as of this encounter Mental Status * Does person have difficulty concentrating/remembering/making decisions? Answer Entry Date Author No 12/29/2024 10:45 PM CDT Whit Deng RN documented in this encounter Miscellaneous Notes * Telephone Encounter - Ijeoma Pang - 02/15/2025 10:33 AM CDT LEFT VM 4 PT Deana Thorpe MRI of brain w/wo contrast referral was faxed to [phone] [facility]. Per scheduling staff once referral is received the patient should receive a phone call to schedule. Per staff this takes approximately 24 hours once referral is received. Authorization determination is handled internally by [facility]. documented in this encounter Plan of Treatment Upcoming Encounters Date Type Department Care Team (Late st Contact Info) Description 03/31/2025 8:30 AM CDT Office Visit [facility] - Neurosurgery [address] [place] [address], [place] [phone] Sylvia Morfin MD [address] [place] [address] [address] [place] [address] 07/13/2025 9:00 AM PIPE OUT WORKER Office Visit [facility] - Neurology [address] [place] [address], [place] [phone] Edenilson Rasmussen, EARLY CHILDHOOD LEAD TEACHER-BUSINESS RISK CONSULTANT [address] [place] [address] [address] [place] [phone] documented as of this encounter Visit Diagnoses Not on filedocumented in this encounter Care Teams Hogshead Head Matcher Relationship Specialty Start Date End Date Scooter Vizcaino MD [address] [place] [address] PCP - General Internal Medicine 10/21/24 documented as of this encounter
== END 2025-02-15 11:10 | disposition home or self-care (01) ==
LOC: CHSLAB 11:14
PROVIDERS: PCP Internal Medicine; Visit Provider Nurse Practitioner Family
DX: Z11.1 Encounter for screening for respiratory tuberculosis (principal)
CPT/HCPCS: 86480